=== PATIENT | male | born 1960 | race Caucasian/White ===

== ENCOUNTER 2016-12-03 07:37 | Day surgery (SDC) | payer BC ==
--- NOTE | 2016-11-06 16:43 | History and Physical Report ---
I saw Mr. Wheatley in the office on 11/05/16 in regards to pain and bulging around his periumbilical region. Mr. Wheatley is a 55-year-old male who states he has had a bulge here for the last couple of years. In his opinion, this has become larger and more painful for him. PAST MEDICAL HISTORY: Significant for hypertension, hypercholesterolemia. PAST SURGICAL HISTORY: Denies. MEDICATIONS: He currently takes: Gemfibrozil Simvastatin Enalapril Aspirin ALLERGIES: HE HAS NO KNOWN MEDICAL ALLERGIES. SOCIAL HISTORY: He denies any tobacco or alcohol usage. PHYSICAL EXAMINATION: GENERAL: Height is 5'11'. Weight is 236. He is afebrile. VITAL SIGNS: Stable. HEART: Regular. LUNGS: Clear. ABDOMEN: Soft. There is an incarcerated umbilical hernia noted. EXTREMITIES: Show no traces of edema. IMPRESSION: INCARCERATED UMBILICAL HERNIA: We did discuss operative repair. The risks include but not limited to; bleeding, infection, acute/chronic pain, recurrence, and he understands this fully. This will be scheduled as an open repair. David Harrington D.O. Date Time JOB NUMBER: [id number] MTDD
[~2016-12-03 07:37] MED LIST: ACETAMINOPHEN 1000MG/100 ML PREMIX IV ONE; CEFAZOLIN 2 Gram 50 ML IVPB ONE
[2016-12-03 07:52] LABS: BASO % 0.4 % (0-6); EOS % 2.4 % (0-6); GRAN % 66.9 % (47-80); HEMATOCRIT 48.7 % (42.0-52.0); HEMOGLOBIN 17.2 gm/dl (14.0-18.0); LYMPH % 21.5 % (16-45); MEAN CELL VOLUME 84.4 fl (81-97); MEAN CORPUSCULAR HEMOGLOBIN 29.8 pg (27-33); MEAN CORPUSCULAR HGB CONC 35.3 g/dl (32-36); MEAN PLATELET VOLUME 10.4 fl (7.4-10.4); MONO % 8.8 % (0-9); PLATELET COUNT 177 K/uL (130-400); RED BLOOD COUNT 5.77 M/uL (4.40-5.70); RED CELL DISTRIBUTION WIDTH 12.9 % (11.5-14.5); WHITE BLOOD COUNT W/O DIFF 7.4 K/uL (4.2-12.2)
[2016-12-03 08:12] LABS: ANION GAP 9.9 (7-16); BLOOD UREA NITROGEN 15 mg/dL (9-20); CARBON DIOXIDE 26.1 mmol/L (22-30); CREATININE 0.9 mg/dL (0.66-1.25); EST GLOMERULAR FILTRATION RATE > 60 ml/min; GLUCOSE,RANDOM 159 mg/dL (70-110)
[2016-12-03] MEDS ORDERED: BUPIVACAINE 0.25% W/EPI MPF 30ML VIAL IVP ONE (12:19)
[2016-12-03] MEDS ORDERED: HYDROCODONE/APAP 5/325MG TABLET PO ONE (12:19)
[2016-12-03] MEDS ORDERED: SEVOFLURANE 250 ML INH ONE (12:24)
[2016-12-03] MEDS ORDERED: KETOROLAC 30 MG/ML VIAL IVP ONE (12:24)
[2016-12-03] MEDS ORDERED: FENTANYL PF 100MCG/2ML VIAL IV ONE (12:24)
[2016-12-03] MEDS ORDERED: ONDANSETRON HCL IV 4 MG/2 ML VIAL IVP ONE (12:24)
[2016-12-03] MEDS ORDERED: PROPOFOL 10 MG/ML VIAL IV ONE (12:24)
[2016-12-03] MEDS ORDERED: LIDOCAINE 2% MDV (20MG/ML) 20ML VIAL IV ONE (12:24)
[2016-12-03] MEDS ORDERED: MIDAZOLAM HCL 2MG/2ML VIAL IV ONE (12:24)
--- NOTE | 2016-12-03 15:10 | Operative Note ---
OPERATIVE REPORT DATE OF PROCEDURE: 12/03/2016. SURGEON: David Harrington D.O. REFERRING PHYSICIAN: Jah Roy M.D. PREOPERATIVE DIAGNOSIS: INCARCERATED UMBILICAL HERNIA. POSTOPERATIVE DIAGNOSIS: INCARCERATED UMBILICAL HERNIA. PROCEDURE: Open umbilical herniorrhaphy with mesh. INDICATIONS: The patient is a 55-year-old male who presented to the clinic with pain and bulging in his periumbilical region. He stated that over the last year or so this has enlarged in size. We did discuss repair, risks, benefits, and alternatives. The risks include, but are not limited to, bleeding , infection, acute and chronic pain, recurrence, and injury to underlying visceral structures. He understood this fully. Therefore consent was signed and questions were answered. DESCRIPTION OF PROCEDURE: He was taken to the operating room and was placed in the supine position. General anesthesia was administered per the Department of Anesthesia. The patient's abdomen was shaved of hair and prepped and draped in the usual fashion. At this time an adequate time out was performed. His identity was confirmed. He did receive preoperative Ofirmev as well as antibiotics. At this time a curvilinear infraumbilical region was anesthetized with a total of 8.0 cc of 0.25% Sensorcaine with epinephrine. A local field block was also used. At this time a 4.0-cm curvilinear infraumbilical incision was made. This was carried down to the anterior rectus fascia. At this time the umbilical stalk was dissected free from the underlying hernia sac and reflected in a cephalad direction. At this time clean circumferential fascial edges were obtained. The hernia sac was amputated and passed off the field. The hernia size was about 1.5 cm. At this time a 6.4-cm round Ventralex mesh was obtained. This was placed into intraperitoneal position. The upper skirt of the mesh was sutured to the anterior rectus fascia with 2-0 Vicryl. The tails overlapped and were sutured in place as well. A total of six sutures of 2-0 Vicryl were placed. At this time the skin was tacked down to the fascia with 3-0 Vicryl. The skin was closed with 4-0 Vicryl. He was taken to the recovery room in satisfactory condition. FINDINGS AT THE TIME OF SURGERY: Incarcerated umbilical hernia, repaired as above. David Harrington D.O. Date Time JOB NUMBER: [id number] cc: Karoline Mcdonald
== END 2016-12-03 10:50 | disposition home or self-care (01) ==
LOC: SUR 07:37
PROVIDERS: ATTEND Surgery
DX: K42.9 Umbilical hernia without obstruction or gangrene (principal); E78.00 Pure hypercholesterolemia, unspecified; I10 Essential (primary) hypertension
CPT/HCPCS: 80048; 85025; J1885; J2405

== ENCOUNTER 2019-10-02 11:27 | Emergency (ER) | payer OTHER ==
--- NOTE | 2019-10-02 11:41 | Emergency Department Record ---
History of Present Illness - General Chief complaint: Rectal bleeding Stated complaint: RECTAL BLEED Time Seen by Provider: 10/02/19 11:38 Source: Patient Mode of Arrival: Ambulatory Limitations: No limitations - History of Present Illness Initial comments: The patient is here due to a hemorrhoid for the last week. It got worse the last 2 days and now is quite large and has been bleeding mildly off and on. The patient denies any AP, fever, lightheadedness, or vomiting and he is having normal BM's. The bleeding is not associated with having a BM. complaint: Blood on toilet paper Onset/Timin -: Week(s) Radiation: None Severity scale (1-10): 2 Quality: Burning Consistency: Constant Improves with: None Worsens with: Other Context: Hemorrhoids Associated Symptoms: Denies other symptoms Treatments Prior to Arrival: Topical ointment - Related Data Home Medications Medication Instructions Recorded Confirmed Last Taken Metformin HCl 500 mg PO BID 10/02/19 10/02/19 Unknown Allergies Allergy/AdvReac Type Severity Reaction Status Date / Time No Known Drug Allergies Allergy Verified 11/19/16 16:15 Travel Screening - Travel/Exposure Within Last 30 Days Have you traveled within the last 30 days?: No Review of Systems Constitutional: Denies: Chills, Fever Eyes: Denies: Eye discharge ENT: Denies: Congestion Respiratory: Denies: Cough, Dyspnea Past Medical History - SOCIAL HISTORY Smoking Status: Never smoker - RESPIRATORY Hx Respiratory Disorders: No - CARDIOVASCULAR Hx Cardio Disorders: Yes Hx Hypertension: Yes (med fairly good control) Comment:: cuts wood frequently - NEURO Hx Neuro Disorders: Yes Hx Headaches: Yes (sinus) - GI Hx Abdominal Pain: No Comment:: alot of gas after eating. - Hx Genitourinary Disorders: No - ENDOCRINE Hx Endocrine Disorders: Yes Hx Diabetes: Yes (type 2) - MUSCULOSKELETAL Hx Musculoskeletal Disorders: Yes Hx Back Injury: Yes - PSYCH Hx Psych Problems: No - HEMATOLOGY/ONCOLOGY Hx Hematology/Oncology Disorders: No Family Medical History Any Significant Family History?: Yes Hx Anxiety: Mother Hx Diabetes: Father, Brother/Sister *Diabetes Comment: brother & Dad Hx Heart Disease: Grandparents *Heart Comment: chf Hx HTN: Mother Hx Resp Disorders: Brother/Sister Physical Exam - General General Appearance: Alert, Oriented x3, Cooperative, No acute distress - Head Head exam: Atraumatic, Normocephalic - Eye Eye exam: Normal appearance - Neck Neck exam: Normal inspection, Full ROM. negative: Tenderness - GI/Abdominal GI/Abdominal exam: Soft, Normal bowel sounds. negative: Rebound, Rigid, Tenderness - Rectal Rectal exam: Hemorrhoids (There is a 2 cm thrombosed hemorrhoid over the L side of the anus. There is an area that was bleeding over the inferior portion of the hemorrhoid but that has now stopped. There is no pain or tenderness surrounding the anus.) - Extremities Extremities exam: Normal inspection, Full ROM, Normal capillary refill. negative: Tenderness - Back Back exam: Reports: Normal inspection - Neurological Neurological exam: Alert. negative: Motor sensory deficit Course Vital Signs 10/02/19 11:39 Temperature 98.8 F Pulse Rate [ 93 H Pulse Ox Probe] Respiratory 18 Rate Blood Pressure 148/95 [Left Arm] Pulse Ox 98 - Reevaluation(s) Reevaluation #1: I did discuss the case with Dr. Harrington and he will see the patient in the [facility] Saturday at 8am in 3 days. Due to no significant pain at this time and no bleeding I do believe the patient is stable and appropriate for outpatient F/U. 10/02/19 12:06 Disposition Disposition: Discharge Clinical Impression: Thrombosed external hemorrhoid Disposition: Home, Self-Care Condition: (2) Stable Instructions: Hemorrhoids (ED) Additional Instructions: Please keep Heavy Preparation H on the site over the weekend and may use Sitz baths. Please see Dr. Harrington at 8am Saturday morning in the Specialty clinic for definitive treatment. Referrals: [facility] Specialty Clinics [Provider Group] Forms: Patient Portal Access Time of Disposition: 12:00 Quality - Quality Measures Quality Measures: N/A - Blood Pressure Screening View Details: Yes Does Patient Have Any of the Following: No Blood Pressure Classification: Hypertensive Reading Systolic Measurement: 148 Diastolic Measurement: 95 Screening for High Blood Pressure: < First Hypertensive BP, F/U Documented > [G8950] First Hypertensive Follow-up Interventions: Referral to alternative/primary care provider.
== END 2019-10-02 12:08 | disposition home or self-care (01) ==
LOC: ER 11:27
DX: K64.5 Perianal venous thrombosis (principal); I10 Essential (primary) hypertension
CPT/HCPCS: 99283